=== PATIENT | male | born 1995 | race Caucasian/White ===

== ENCOUNTER 2019-11-10 17:02 | Emergency (ER) | payer OTHER ==
[2019-11-10 17:11] VITALS: BP 168/76
[2019-11-10 17:35] LABS: BASOPHILS % (AUTO) 0.3 %; EOSINOPHILS # (AUTO) 0.4 10^3/uL (0.0-0.7); EOSINOPHILS % (AUTO) 4.9 %; HGB - HEMOGLOBIN 14.5 g/dL (14.0-18.0); LYMPHOCYTES # (AUTO) 2.1 10^3/uL (1.5-3.5); LYMPHOCYTES % (AUTO) 24.7 %; MEAN CORPUSCULAR HEMOGLOBIN 30.4 pg (27.0-31.0); MEAN CORPUSCULAR HGB CONC 32.8 g/dL (32.0-36.0); MEAN CORPUSCULAR VOLUME 92.7 fL (80.0-94.0); MEAN PLATELET VOLUME 9.8 fL (7.4-11.4); MONOCYTES # (AUTO) 0.8 10^3/uL (0.0-1.0); MONOCYTES % (AUTO) 9.2 %; NEUTROPHILS # (AUTO) 5.2 10^3/uL (1.5-6.6); NEUTROPHILS % (AUTO) 60.6 %; PLT - PLATELET COUNT 215 10^3/uL (130-450); RED BLOOD COUNT 4.77 10^6/uL (4.70-6.10); RED CELL DISTRIBUTION WIDTH 12.9 % (12.0-15.0); WHITE BLOOD COUNT 8.6 x10^3/uL (4.8-10.8)
[2019-11-10 17:51] LABS: ALBUMIN 4.5 g/dL (3.2-5.5); ALBUMIN/GLOBULIN RATIO 1.5 (1.0-2.2); CALCIUM 9.5 mg/dL (8.5-10.3); TOTAL PROTEIN 7.5 g/dL (6.7-8.2)
[2019-11-10] MEDS ORDERED: MAG HYDROX/AL HYDROX/SIMETH 30 ML UDC PO STA (18:09)
[2019-11-10] MEDS ORDERED: LIDOCAINE VISCOUS 2% 15 ML UDC MM STA (18:09)
[2019-11-10] MEDS ORDERED: FAMOTIDINE 20 MG TABLET PO STA (18:09)
[2019-11-10] MEDS ORDERED: SUCRALFATE 1 GM/10 ML UDC PO STA (18:09)
--- NOTE | 2019-11-10 18:20 | ED Physician Documentation ---
PD HPI ABD PAIN - Stated complaint Stated Complaint: ABD BURNING/PX - Chief complaint Chief Complaint: Abd Pain - History obtained from History obtained from: Patient - History of Present Illness Timing - onset: How many days ago (2-3) Timing - duration: Days (2-3) Timing - details: Gradual onset Pain level max: 5 Pain level now: 4 Quality: Other (burning) Location: Epigastric Radiation: No: Chest, , Lower back, Left flank, Left shoulder, Right flank, Right shoulder, Upper back Improved by: Other (nothing) Worsened by: Eating Associated symptoms: Nausea. No: Fever, Vomiting, Hematemesis, Diarrhea, Constipation, Melena, Hematochezia, Dysuria, Hematuria Recently seen: Not recently seen Review of Systems Constitutional: denies: Fever, Chills Respiratory: denies: Cough Skin: denies: Rash Musculoskeletal: denies: Neck pain, Back pain Neurologic: denies: Headache PD PAST MEDICAL HISTORY - Past Medical History Past Medical History: No - Past Surgical History Past Surgical History: No - Present Medications Home Medications: Ambulatory Orders Medication Instructions Recorded Confirmed Famotidine [Pepcid] 20 mg PO BID #60 tablet 11/10/19 Sucralfate [Carafate] 1 gm PO ACHS #60 tablet 11/10/19 - Allergies Allergies/Adverse Reactions: Allergies Allergy/AdvReac Type Severity Reaction Status Date / Time No Known Drug Allergies Allergy Verified 11/10/19 17:08 - Living Situation Living Arrangement: reports: At home - Social History Does the pt smoke?: No Does the pt have substance abuse?: No PD ED PE NORMAL - Vitals Vital signs reviewed: Yes - General General: Alert and oriented X 3, No acute distress, Well developed/nourished - HEENT HEENT: Moist mucous membranes - Neck Neck: Supple, no meningeal sign - Cardiac Cardiac: RRR, Strong equal pulses - Respiratory Respiratory: No respiratory distress, Clear bilaterally - Abdomen Abdomen: Soft, Non tender, Non distended - Derm Derm: Warm and dry - Neuro Neuro: Alert and oriented X 3 - Psych Psych: Normal mood, Normal affect Results - Vitals Vitals: Vital Signs - 24 hr 11/10/19 17:08 Temperature 36.5 C Heart Rate 68 Respiratory 14 Rate Blood Pressure 168/76 H O2 Saturation 100 Oxygen O2 Source Room air - Labs Labs: Laboratory Tests 1211/10/19 11/10/19 17:30 17:30 18:05 WBC 8.6 RBC 4.77 Hgb 14.5 Hct 44.2 MCV 92.7 MCH 30.4 MCHC 32.8 RDW 12.9 Plt Count 215 MPV 9.8 Neut # (Auto) 5.2 Lymph # (Auto) 2.1 Screven # (Auto) 0.8 Eos # (Auto) 0.4 Baso # (Auto) 0.0 Absolute Nucleated RBC 0.00 Nucleated RBC % 0.0 Sodium 138 Potassium 4.0 Chloride 102 Carbon Dioxide 27 Anion Gap 9.0 BUN 14 Creatinine 1.0 Estimated GFR (MDRD) 92 Glucose 91 Calcium 9.5 Total Bilirubin 1.0 AST 39 ALT 25 Alkaline Phosphatase 46 Total Protein 7.5 Albumin 4.5 Globulin 3.0 Albumin/Globulin Ratio 1.5 Lipase 35 Urine Color YELLOW Urine Clarity CLEAR Urine pH 7.5 Ur Specific [place] 1.010 Urine Protein NEGATIVE Urine Glucose (UA) NEGATIVE Urine Ketones NEGATIVE Urine Occult Blood NEGATIVE Urine Nitrite NEGATIVE Urine Bilirubin NEGATIVE Urine Urobilinogen 0.2 (NORMAL) Ur Leukocyte Esterase NEGATIVE Ur Microscopic Review NOT INDICATED Urine Culture Comments NOT INDICATED PD MEDICAL DECISION MAKING - ED course Complexity details: reviewed results, re-evaluated patient, considered differential, d/w patient ED course: Patient with what appears to be gastritis versus GERD versus ulcer. No acute laboratory abnormalities. Symptoms resolved GI cocktail. Will place on medications for home and have him follow-up with his doctor. Patient counseled regarding signs and symptoms for which I believe and urgent re-evaluation would be necessary. Patient with good understanding of and agreement to plan and is comfortable going home at this time This document was made in part using voice recognition software. While efforts are made to proofread this document, sound alike and grammatical errors may occur. Departure - Departure Disposition: 01 Home, Self Care Clinical Impression: GERD (gastroesophageal reflux disease) Qualifiers: Esophagitis presence: esophagitis presence not specified Qualified Code(s): K21.9 - Gastro-esophageal reflux disease without esophagitis Condition: Good Instructions: ED GERD Follow-Up: your,doctor in 1 week [Other] Prescriptions: Famotidine [Pepcid] 20 mg PO BID #60 tablet Sucralfate [Carafate] 1 gm PO ACHS #60 tablet Comments: Return if you worsen. Follow up with your doctor for further care. Avoid fried foods, spicy foods, fatty foods. Avoid alcohol, caffeine. Discharge Date/Time: 11/10/19 18:55
[2019-11-10 18:23] LABS: BILIRUBIN,URINE NEGATIVE (NEGATIVE); GLUCOSE, URINE (UA) NEGATIVE (NEGATIVE); KETONES,URINE (UA) NEGATIVE (NEGATIVE); LEUKOCYTE ESTERASE, URINE NEGATIVE (NEGATIVE); NITRITE,URINE NEGATIVE (NEGATIVE); OCCULT BLOOD,URINE NEGATIVE (NEGATIVE); PH,URINE 7.5 PH (5.0-7.5); PROTEIN,URINE NEGATIVE (NEGATIVE); UROBILINOGEN,URINE 0.2 (NORMAL) E.U./dL (NORMAL)
[2019-11-10 18:40] LABS: CLARITY,URINE CLEAR (CLEAR)
== END 2019-11-10 18:55 | disposition home or self-care (01) ==
LOC: ED 17:02
DX: K21.9 Gastro-esophageal reflux disease without esophagitis (principal)
CPT/HCPCS: 36415; 80053; 81003; 83690; 85025; 99283; 99284; A9270; 81001; 87086

== ENCOUNTER 2023-02-07 13:07 | Outpatient (CLI) | payer OTHER ==
[2023-02-07 13:48] VITALS: BP 146/98
--- NOTE | 2023-02-07 13:48 | SLEEP CARE CONSULTATION ---
Information from patient questionnaire entered by Zeb Campo. I have reviewed and concur with the information entered by Zeb Campo. This document represents the service I personally performed and the decisions made by me, Geovanna De Guzman ARNP. History of Present Illness Service Date and Time: 02/07/2023 1307 Reason for Visit: New patient Chief Complaint: reports: Insomnia, Unrefreshed sleep, Snoring, Observed pauses in breathing, Frequent awakenings at night Date of Onset: A COUPLE YRS Usual bedtime: 10 Time it takes to fall asleep: 4-5 HRS with meds Snores at night: Yes Observed to quit breathing while asleep: Yes Sleeps alone due to snoring: No Number of times waking at night: 2-3 Reasons for waking at night: reports: Snoring, Gasping for air. denies: Choking Toss, Turn, or Twitch while sleeping: No Recalls having dreams: Yes (has vivid dreams/nightmares mostly) Usually gets out of bed at: 7AM Feels refreshed in the morning: No Morning headache: Yes (couple times a week; RESOLVES COUPLE HRS AFTER WAKING) Sleepy or fatigued during the day: Yes Ever fallen asleep while driving: No Takes day naps: Yes (whenever he watches TV, will fall asleep; sleeps 4-5 hours) Dreams during day naps: Yes Prior sleep studies: No Additional HPI information: I had the pleasure of seeing RYAN KILLIAN today regarding the possibility of him having a sleep disorder. His current complaints are frequent night awakenings, observed pauses in breathing, snoring and unrefreshed sleep. He states about 2 years ago he stopped being able to sleep well. He can now take 4- 5 hours to fall asleep, even when he has had medication to help him fall asleep. He states he stops breathing when he is sleeping and it will wake him up gasping. He snores very loud and his girlfriend will wake him up to roll over. He states he does not get much sleep because his PTSD keeps him up late. He does not usually wake up feeling rested. - Parasomnia Symptoms Ever been unable to move upon waking from sleep: No Walks in sleep: No Talks in sleep: Yes Ever acted out dreams in sleep: No Ever felt weak in the knees when startled or emotional: Yes (has not fallen to ground) Bothered by creepy, crawly, restless sensations in legs: No Problems with memory or concentration: No Subjective Initial [place] Sleepiness Scale score: 13 (02/07/23) Past Medical History Past Medical History: reports: Anxiety, Depression, Mood disorder (Major Deprssion Disorder), GERD, Other (PTSD) Social History The patient's occupation is a AM. Patient is Single and lives in . Have you smoked in the past 12 months: No Alcohol use: Yes Alcohol amount and frequency: COUPLE BEERS ON THE WEEKENDS Caffeine use: Yes Caffeine amount and frequency: 2 EVERY WEEKDAY MORNING Family History Family history of sleep disordered breathing: No Allergies and Home Medications Known drug allergies: No Drug allergies reviewed: Yes Home medication list reviewed: Yes Allergy and home medication list: Allergies No Known Drug Allergies Allergy (Verified 02/06/23 14:03) Medications: Wellbutrin Zolpidem Venlafaxine Review of Systems Weight gain over past 5 years: 50 Weight loss over past 5 years: 20 - currently losing weight Cardiovascular: denies: high blood pressure Gastrointestinal: reports: heartburn, vomitting Neurological: reports: headaches (migraines 2 times a month). denies: head trauma Psychiatric: reports: anxiety, depression, mood disorder Ear/Nose/Throat: reports: wisdom teeth removed. denies: injury to nose, tonsillectomy Endocrine: reports: sluggishness. denies: thyroid disease Musculoskeletal: reports: joint pain, neck pain, back pain Immunologic: reports: allergies to food or environment (seasonal, mosquitoes) Physical Exam Vital signs obtained and entered by: ZEB Beyer MA Blood Pressure: 146/98 (LEFT ARM) Cuff size: regular (LEFT ARM) Heart Rate: 93 O2 Saturation: 96 Height: 5 ft 8 in Weight: 273 lb 9.6 oz Body Mass Index: 41.5 BMI Classification: Morbidly Obese Neck circumference: 17 Mouth and throat: narrow oropharynx Soft palate: normal Hard palate: normal Uvula: normal Uvula visualization: 50% Mallampati Class II Tongue: enlarged in size with teeth leija on lateral edges Tonsils: 2+ Neck: normal w/o lymphadenopathy or thyromegaly Heart: regular rate and rhythm Lungs: clear bilaterally Impression and Plan 1. Suspected Obstructive Sleep Apnea-Hypopnea Syndrome, as suggested by a history of loud and irregular snoring, observed cessation of breath while asleep, gasping or choking in sleep, morning headache, frequent awakening during the night, unrefreshed sleep, and excessive daytime sleepiness. Narrow oropharynx and obesity are common predisposing factors for obstructive sleep apnea-hypopnea syndrome. I recommend proceeding to polysomnography to confirm the diagnosis and to assess severity. If the patient has significant sleep disordered breathing, a manual CPAP titration study will also be performed to find the optimal treatment pressure. I informed the patient of what the sleep studies involve and after some discussion, obtained agreement to proceed. The pathophysiology of obstructive sleep apnea-hypopnea syndrome was discussed with the patient and health risks of cardiovascular and cerebrovascular disease if not treated. Risks of drowsy driving discussed in detail and patient advised to avoid long distance driving and to jawbone puller at the first sign of drowsiness. Patient agreed to plan. * Schedule polysomnography * Avoid long distance driving or driving when feeling sleepy. * Avoid alcohol, sedative and muscle relaxant around bedtime. * Attempt to lose weight. * Review instructions provided by trained office staff on how to prepare for the sleep study. * Return for follow-up after sleep study completed. Counseling Topics: Weight loss health impact Visit Type: In Office Time Spent with Patient (minutes): 30 Provider Statement: I spent 100% of the Face to Face Visit with the patient with greater than 50% spent counseling the patient and coordination of care.
== END 2023-02-07 13:08 | disposition home or self-care (01) ==
LOC: SC 13:07
PROVIDERS: ATTEND Nurse Practitioner Family
DX: G47.8 Other sleep disorders (principal); R51.9 Headache, unspecified; E66.01 Morbid (severe) obesity due to excess calories; F32.A Depression, unspecified; Z68.41 Body mass index [BMI] 40.0-44.9, adult
CPT/HCPCS: 99203; 99212

== ENCOUNTER 2023-03-07 19:40 | Outpatient (CLI) | payer OTHER | END 2023-03-07 19:41 | disposition home or self-care (01) | LOC: SC 19:40 | PROVIDERS: ATTEND Nurse Practitioner Family | DX: G47.33 Obstructive sleep apnea (adult) (pediatric) (principal); E66.01 Morbid (severe) obesity due to excess calories; Z68.41 Body mass index [BMI] 40.0-44.9, adult | CPT/HCPCS: 95810 ==

== ENCOUNTER 2023-03-14 15:56 | Emergency (ER) | payer OTHER ==
--- NOTE | 2023-03-14 16:46 | ED Physician Documentation ---
PD HPI LOWER EXT INJURY - Stated complaint Stated Complaint: RT KNEE PX - Chief complaint Chief Complaint: Ext Problem - History obtained from History obtained from: Patient - History of Present Illness PD HPI LOW EXT INJURY LOCATION: Right, Knee Pain level max: 6 Pain level now: 4 Improved by: Rest, Ice, Immobilization Worsened by: Moving, Palpating Associated symptoms: Swelling. No: Weakness, Numbness, Tingling, Discolored - Additional information Additional information: Patient is a 27-year-old male who presents to the emergency department complaint of right knee pain. He states been ongoing for about a month. He states he was seen at the [facility] but just given motrin. He states the knee has continued to worsen since that time. He states he was doing squats a few days ago and the knee began to hurt worse. Worse with walking, better with rest. Noted swelling to the right knee. Review of Systems Neurologic: denies: Headache PD PAST MEDICAL HISTORY - Past Medical History Past Medical History: Yes - Past Surgical History Past Surgical History: No - Present Medications Home Medications: Ambulatory Orders Medication Instructions Recorded Confirmed Venlafaxine ER [Effexor ER] See Rx Instructions .ROUTE .COMPLEX 02/07/23 02/07/23 Zolpidem [Ambien] See Rx Instructions .ROUTE .COMPLEX 02/07/23 02/07/23 buPROPion [Wellbutrin Sr] See Rx Instructions .ROUTE .COMPLEX 02/07/23 02/07/23 Meloxicam [Mobic] 7.5 mg PO BID PRN #30 tablet 03/14/23 - Allergies Allergies/Adverse Reactions: Allergies Allergy/AdvReac Type Severity Reaction Status Date / Time No Known Drug Allergies Allergy Verified 03/14/23 16:06 - Living Situation Living Situation: reports: With family Living Arrangement: reports: At home - Social History Does the pt smoke?: No Does the pt have substance abuse?: No PD ED PE NORMAL - Vitals Vital signs reviewed: Yes - General General: Alert and oriented X 3, No acute distress - HEENT HEENT: Moist mucous membranes - Neck Neck: Supple, no meningeal sign - Derm Derm: Warm and dry - Extremities Extremities: Other (Left knee is normal. Right knee has a small joint effusion. Mild tenderness along the lateral joint line. ACL and PCL are intact. There is mild laxity of the LCL and MCL. NVI) - Neuro Neuro: Alert and oriented X 3 Results - Vitals Vitals: Vital Signs - 24 hr 03/14/23 16:03 Temperature 36.6 C Heart Rate 101 H Respiratory 18 Rate Blood Pressure 191/89 H O2 Saturation 99 Oxygen O2 Source Room air - Rads (name of study) Right knee x-ray Relevant Findings:: Final report received, See rad report PD Medical Decision Making - ED course Complexity details: reviewed results, re-evaluated patient, considered differential, d/w patient ED course: 27-year-old male with ongoing right knee pain, does have a small joint effusion on clinical exam and x-ray. Also has mild ligamentous laxity of the LCL and MCL. Neurovascularly intact. Placed an articulating knee brace. Declines crutches. Will place on anti-inflammatory medications as well. Recommend that he follow-up with his doctor and or orthopedics for further care. May benefit from an MRI as an outpatient. Patient counseled regarding signs and symptoms for which I believe and urgent re-evaluation would be necessary. Patient with good understanding of and agreement to plan and is comfortable going home at this time This document was made in part using voice recognition software. While efforts are made to proofread this document, sound alike and grammatical errors may occur. Departure - Departure Disposition: 01 Home, Self Care Clinical Impression: Knee effusion, right Condition: Good Instructions: ED Meniscal Injury Knee Poss, ED Effusion Knee Follow-Up: [facility] [Provider Group] [facility] [Provider Group] Prescriptions: Meloxicam [Mobic] 7.5 mg PO BID PRN #30 tablet PRN Reason: Pain Comments: Please follow-up with your doctor for further care. You do have mild laxity to your MCL and LCL. You also have a small joint effusion on x-ray. Please use the brace to help take the pressure off of your joints. Please follow-up with your doctor for further care. They may want to consider an MRI. You may have a meniscus injury in your knee. Your prescription was sent to [facility] in [place]. IMPRESSION: Small knee joint effusion. No acute bony abnormality. If this patient cannot bear weight, consider MRI.
--- NOTE | 2023-03-14 16:51 | XRAY Report ---
PROCEDURE: Knee 4 View RT INDICATIONS: R knee pain TECHNIQUE: 4 views of the right knee(s) were acquired. COMPARISON: None. FINDINGS: Bones: No fractures or dislocations. No suspicious bony lesions. Soft tissues: Small knee joint effusion. No suspicious soft tissue calcifications or masses. IMPRESSION: Small knee joint effusion. No acute bony abnormality. If this patient cannot bear weight, consider MR I. Reviewed by: Forest Garcia on 03/14/2023 4:49 PM PDT Approved by: Forest Garcia on 03/14/2023 4:49 PM PDT Station ID: [id number]
[2023-03-14 17:34] VITALS: BP 169/80
== END 2023-03-14 17:34 | disposition home or self-care (01) ==
LOC: ED 15:56
DX: M25.461 Effusion, right knee (principal); Z79.899 Other long term (current) drug therapy
CPT/HCPCS: 99283

== ENCOUNTER 2023-03-27 09:28 | Outpatient (CLI) | payer OTHER ==
--- NOTE | 2023-03-27 09:46 | Sleep Patient Instructions ---
Sleep Center Visit Summary - Patient Visit Information Reason for Visit: Sleep study follow up - Patient Instructions Instructions Attached: CPAP Dc, CPAP Additional Instructions: You will be started on CPAP therapy with pressure setting at 4-15 cmH2O. Please call the office to set up your next follow up once you obtain your new APAP machine and we will check compliance and response to therapy at that time. You may call the office with any concerns about pressure feeling too low or too much for adjustment if needed. You should contact DME for any questions or concerns about mask or equipment. - Clinic Information Contact: [facility] [address] [place] [address] [email or web address] T: [phone]
[2023-03-27 09:50] VITALS: BP 112/78
--- NOTE | 2023-03-27 09:50 | SLEEP CARE CONSULTATION ---
Information from patient questionnaire entered by Lisa Campo. I have reviewed and concur with the information entered by Lisa Campo. This document represents the service I personally performed and the decisions made by , Geovanna De Guzman ARNP. History of Present Illness Service Date and Time: 03/27/2023927 Initial [place] Sleepiness Scale score: 13 (02/07/23) Current [place] Sleepiness Scale score: 14 (03/27/23) Additional HPI information: RYAN KILLIAN returns for follow up and results of the recently performed polysomnography. I explained the pathophysiology behind obstructive sleep apnea. We then spent quite a bit of time discussing different treatment options. For mild obstructive sleep apnea, surgery and oral appliance are alternatives to nasal CPAP therapy but in moderate or severe cases, nasal CPAP is the most effective and reliable treatment. Because apnea is primarily in supine position, then positional management therapy could be effective. Methods discussed such as positioning with pillows, using a T-shirt with tennis balls in the back,or commercial products that have a pillow format on back to prevent supine sleep. I reviewed the impact of weight changes on sleep apnea and strongly recommended losing weight. After some discussion, the patient opted to go with the nasal CPAP therapy. Nasal autoCPAP set at 4-15 cmH20 will be ordered with rationale explained. A manual titration study will be ordered if unable to find optimal pressure with office adjustments. I explained how CPAP machine works and what to expect when using the machine. Using CPAP every night in order to get used to it was emphasized. Patient advised to put CPAP mask on before getting into bed so as not to fall asleep without CPAP. To assist acclimation to CPAP use, it could also be used for a short time during day while reading or watching TV. The patient was instructed to call the CPAP supplier to discuss any mechanical problem that may occur. If the mask given is uncomfortable or is difficult to keep on through the night even with adjustment, contact the CPAP supplier as many will replace with another mask style if notified before 30 days. If snoring or perceives is not getting enough air or too much air from the machine, notify this office. Patient does not drink alcohol. Patient was cautioned about risks of drowsy driving until sleepiness symptoms resolve. Patient denies drowsy driving. Sleep Study - Results Type of Sleep Study: Polysomnography (COMPLETED 03/07/23) Prior sleep studies: No Polysomnography/Home Sleep Study results: IMPRESSION: The quality of the study is good. 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 The sleep architecture was normal. Respiratory monitoring showed mild obstructive sleep apneahypopnea (AHI = 10.6) associated with oxyhemoglobin desaturation and mild hypoxia (cheng oxygen saturation of 84%) but not sleep fragmentation. The respiratory events occurred more frequently during supine sleep (supine AHI = 13.0; non-supine = 7.27). Snore was loud in intensity. There was no significant periodic leg movement of sleep. Cardiac rhythm was normal sinus rhythm without significant arrhythmia. No abnormal behavior (parasomnia) observed during the night. Allergies and Home Medications Known drug allergies: No Drug allergies reviewed: Yes Home medication list reviewed: Yes (tizanadine, mirtazapine) Allergy and home medication list: Allergies No Known Drug Allergies Allergy (Verified 03/26/23 13:23) Review of Systems Review of systems same as previous: Yes (no changes) Physical Exam Vital signs obtained and entered by: LISA Beyer MA Blood Pressure: 112/78 (LEFT ARM) Cuff size: regular Heart Rate: 68 O2 Saturation: 99 Height: 5 ft 8 in Weight: 275 lb 6.4 oz Body Mass Index: 41.8 BMI Classification: Morbidly Obese Impression and Plan 1. Obstructive Sleep Apnea-Hypopnea Syndrome, mild, with lowest oxygen saturation of 84%. Obviously this is the cause of the patients symptoms of unrefreshed sleep, and excessive daytime sleepiness. Positive pressure therapy could benefit anxiety, depression, mood disorders and gastric reflux. As mentioned above, the patient will be started on nasal autoCPAP therapy with pressure set at 4-15 cmH2O. A manual titration study will be completed if unable to find optimal treatment pressure with office adjustments. Compliance guidelines also reviewed. A copy of compliance guidelines will be given for reference at check out. Because the apnea is more severe supine, I instructed to avoid sleeping supine using pillow positioning until able to start CPAP use. 2. Hypoxemia, mild, with a cheng oxygen saturation of 84% and 0.4 minutes spent under 90%. His baseline oxygen saturation was normal with an average oxygen s aturation of 95%. * Nasal auto CPAP therapy, pressure at 4-15 cm H2O. * Attempt to lose weight. * Avoid alcohol consumption near bedtime. * Avoid supine sleep until using CPAP. * The patient is again cautioned about driving until sleepiness completely resolves. * Return one month after CPAP obtained. I will assess response to therapy and compliance at that time. Counseling Topics: Weight loss health impact Visit Type: In Office Time Spent with Patient (minutes): 20 Provider Statement: I spent 100% of the Face to Face Visit with the patient with greater than 50% spent counseling the patient and coordination of care.
== END 2023-03-27 09:29 | disposition home or self-care (01) ==
LOC: SC 09:28
PROVIDERS: ATTEND Nurse Practitioner Family
DX: G47.33 Obstructive sleep apnea (adult) (pediatric) (principal); R09.02 Hypoxemia; E66.01 Morbid (severe) obesity due to excess calories; Z68.41 Body mass index [BMI] 40.0-44.9, adult
CPT/HCPCS: 99212; 99213

== ENCOUNTER 2023-09-08 19:00 | Emergency (ER) | payer OTHER ==
[2023-09-08 19:16] VITALS: BP 147/83; O2SAT 98
[2023-09-08] MEDS ORDERED: KETOROLAC 30 MG/ML VIAL IM STA (20:10)
[2023-09-08] MEDS ORDERED: DEXAMETHASONE 10 MG/ML VIAL PO STA (20:11)
[2023-09-08] MEDS ORDERED: CHERRY SYRUP 10 ML UDC PO ONE (20:11)
--- NOTE | 2023-09-08 20:32 | ED Physician Documentation ---
History of Present Illness - Stated complaint Stated Complaint: BACK PX - Chief complaint Chief Complaint: Back Pain - Additonal information Additional information: 28-year-old male who began working out about 3 weeks ago presents to the [facility] department for evaluation of acute low back pain he reports that he was doing a lift with 245 pounds. He did have some pain when doing the lifts but finish the set and completed his upper back workout. Since going home he has had difficulty sitting or standing and has some pain radiating down both his legs most predominant though on the left. No saddle anesthesia. No bowel or bladder incontinence. He did take some THC orally but no other meds prior to arrival. Denies any previous history of back pain or back injury. Review of Systems Respiratory: reports: Reviewed and negative GI: reports: Reviewed and negative : reports: Reviewed and negative Musculoskeletal: reports: Back pain PD PAST MEDICAL HISTORY - Past Surgical History Past Surgical History: No - Present Medications Home Medications: Ambulatory Orders Medication Instructions Recorded Confirmed Venlafaxine ER [Effexor ER] See Rx Instructions .ROUTE .COMPLEX 02/07/23 03/27/23 Zolpidem [Ambien] See Rx Instructions .ROUTE .COMPLEX 02/07/23 03/27/23 buPROPion [Wellbutrin Sr] See Rx Instructions .ROUTE .COMPLEX 02/07/23 03/27/23 Meloxicam [Mobic] 7.5 mg PO BID PRN #30 tablet 03/14/23 03/27/23 Mirtazapine See Rx Instructions .ROUTE .COMPLEX 03/27/23 03/27/23 tiZANidine [Zanaflex] See Rx Instructions .ROUTE .COMPLEX 03/27/23 03/27/23 Cyclobenzaprine [Flexeril] 10 mg PO TID PRN #20 tablet 09/08/23 Oxycodone HCl/Acetaminophen 1 - 2 each PO Q6H PRN #14 tablet 09/08/23 [Percocet 5-325 mg Tablet] - Allergies Allergies/Adverse Reactions: Allergies Allergy/AdvReac Type Severity Reaction Status Date / Time No Known Drug Allergies Allergy Verified 03/27/23 09:34 - Social History Does the pt smoke?: No Smoking Status: Never smoker Does the pt have substance abuse?: No PD ED PE NORMAL - General General: Alert and oriented X 3. No: No acute distress (appears ) - HEENT HEENT: Atraumatic - Cardiac Cardiac: RRR, No murmur - Respiratory Respiratory: No respiratory distress, Clear bilaterally - Abdomen Abdomen: Normal bowel sounds, Soft - Back Back: No spinal TTP (no midline lumbar spinous tenderness. pain with forward flexion and palpation left paraspinous region. motro strength 5/5 BLE. Reports bilateral parathesias. ambulatory withotu assistance) - Derm Derm: Normal color, Warm and dry, No rash - Extremities Extremities: No deformity - Neuro Neuro: Alert and oriented X 3 Eye Opening: Spontaneous Motor: Obeys Commands Verbal: Oriented GCS Score: 15 Results - Vitals Vitals: Vital Signs - 24 hr 09/08/23 19:06 Temperature 36.4 C L Heart Rate 102 H Respiratory 20 Rate Blood Pressure 147/83 H O2 Saturation 98 Oxygen O2 Source Room air PD Medical Decision Making - ED course Complexity details: d/w patient ED course: 28-year-old male here for acute mostly left-sided low back pain sustained when he was lifting 425 pounds. He did have pain during the lift but continued to work out afterwards since then significant pain in the low back with reported tingling to both extremities. He has no loss of motor strength. No saddle anesthesia, loss of bowel or bladder function. Here in the emergency department he was administered 30 mg of Toradol IM as well as given 10 mg of Decadron orally. On reevaluation he felt little relief of the pain. As such I administered him a 1 mg dose of Dilaudid IM. Clinically the history is most suggestive of a disc herniation with some likely nerve impingement. There are no red flags to suggest cauda equina or spinal epidural abscess. I discussed with patient the routine care measures for what appears to be a mechanical back pain. He is recommended Tylenol 500 mg 4 times a day or alter nating with ibuprofen 600 mg 3 times a day. A prescription for Flexeril is being sent to the pharmacy as well. For more severe pain a limited amount of oxycodone is being sent to the pharmacy. Her I recommend patient follow closely with PCP. I believe he would benefit from early intervention with physical therapy. We discussed the usual time course for low back pain which includes a recovery period typically of several weeks. The emergent return precautions were discussed for concerns of saddle anesthesia or bowel and bladder incontinence. I am prescribing a short course of short-acting opioid pain medication for this patient. I have reviewed the patients [employer] and no concerning findings were noted. I have discussed that the opioids are for short term therapy only, and will not be refilled from the ED. Departure - Departure Disposition: 01 Home, Self Care Clinical Impression: Low back pain Qualifiers: Chronicity: acute Back pain laterality: left Sciatica presence: without sciatica Qualified Code(s): M54.50 - Low back pain, unspecified Condition: Stable Record reviewed to determine appropriate education?: Yes Instructions: ED Sprain Strain Lumbar, Flexeril Prescriptions: Cyclobenzaprine [Flexeril] 10 mg PO TID PRN #20 tablet PRN Reason: Spasms Oxycodone HCl/Acetaminophen [Percocet 5-325 mg Tablet] 1 - 2 each PO Q6H PRN #14 tablet PRN Reason: pain Comments: You were lifting today and felt pain in your low back. You did continue your work out now you have significant pain in the low back. As discussed at the bedside I suspect that you have sprained the muscles of the low back but it is also likely that you have herniated one of your discs. Here in the ER we did give you a dose of Toradol as well as a single dose of Decadron which should help with pain and inflammation over the next several days. In general with back pain I want encourage you to walk frequently. Walking will help reduce spasm and tightening. Please take Tylenol 500 mg 3-4 times a day and alternate with ibuprofen taken with food 600 mg also 3 times a day. I have written a prescription for Flexeril a muscle relaxer which some people find useful in the management of back pain. For more severe symptoms a limited amount of Percocet has also been sent to the pharmacy. Do not use the Percocet or Flexeril together. They can cause excessive sedation. The oxycodone in particular makes it unsafe for you to drive so do not drive if taking it within the last 24 hours. Please follow closely with your primary doctor. Most low back pain such as yours would benefit from early physical therapy evaluation. Most episodes of back pain begin to resolve after 2 to 3 weeks. If at any point you develop numbness in your genital region, lose control of your bowel or bladder function then you will need to return immediately to the ER for repeat evaluation. I am prescribing a short course of narcotic pain medication for you. These are potentially dangerous and addictive medications that should be used carefully. These medications may constipate you. Take an vtys-ohd-tnijpvi stool softener (docusate) twice daily with plenty of water while taking these medications. If you go 24 hours without a bowel movement, take dlgj-waf-ekbwohm miralax, per package instructions. Do not drink or drive while taking these medications. If you received narcotic or sedating medications while in the emergency department, do not drive for 24 hours. Store this medication in a safe, secure place and out of reach of children. It is a violation of federal law to give or sell this medication to another person or to use in a manner other than prescribed. The ED will not refill narcotic prescriptions, including prescriptions lost or stolen. To dispose of unwanted medications: 1. [facility] [address] in [place] has a medication drop box. They accept prescription medications (in pill form) Friday through Friday 9:00 a.m. to 5:00 p.m. 2. [facility] [employer] accepts prescription medications (in pill form only) for disposal year round. Call for more information. 3. Contact the [facility] for the next [facility] sponsored prescription drug collection event. , [phone], or [phone]; Note that many narcotic pain relievers also contain Tylenol/acetaminophen. Please ensure that your total dose of acetaminophen from all sources does not exceed 3 g (3000 mg) per day.
[2023-09-08] MEDS ORDERED: HYDROmorphone 1 MG/ML CARPUJECT IM STA (21:02)
== END 2023-09-08 21:21 | disposition home or self-care (01) ==
LOC: ED 19:00
DX: M54.50 Low back pain, unspecified (principal)
CPT/HCPCS: 96372; 99283; A9270; J1170

== ENCOUNTER 2024-02-02 12:52 | Outpatient (CLI) | payer OTHER ==
--- NOTE | 2024-02-02 15:50 | Ultrasound Report ---
PROCEDURE: Abdomen Limited INDICATIONS: VOMITING TECHNIQUE: Real-time focused scanning was performed of the abdomen, with image documentation. COMPARISONS: None. FINDINGS: Liver: Liver demonstrates heterogeneous echogenicity without focal intrahepatic lesions. No hepatome michael. Main portal vein is normal in size and demonstrates hepatopedal flow. Gallbladder: Unremarkable. Biliary ducts: Intrahepatic bile ducts are non-dilated. Extrahepatic bile duct caliber measures 4 m m. Normal is 6-7 mm or less in diameter, or 10 mm or less post-cholecystectomy. Pancreas: Visualized portions of the pancreas are sonographically normal. Right kidney: Normal in size and echotexture. Right kidney measures cm long. No hydronephrosis or ne phrolithiasis. No solid masses. No complex renal cystic lesions which require follow-up. IVC: Intrahepatic inferior vena cava is patent. Miscellaneous: No free abdominal fluid. IMPRESSION: Heterogeneous hepatic echotexture without focal intrahepatic lesions. Findings may represent hepatic steatosis or sequela other chronic hepatocellular disease. Otherwise, unremarkable sonographic evalua tion of the abdomen. Reviewed by: Aurelio Morgan MD on 02/02/2024 2:49 PM HUNTER Approved by: Aurelio Morgan MD on 02/02/2024 2:49 PM AKTERESA Station ID: [id number]
== END 2024-02-02 12:53 | disposition home or self-care (01) ==
LOC: DI 12:52
PROVIDERS: ATTEND Student in an Organized Health Care Education/Training Program
DX: R11.10 Vomiting, unspecified (principal)

== ENCOUNTER 2024-02-18 11:50 | Outpatient (CLI) | payer OTHER ==
[2024-02-18 12:06] LABS: BASOPHILS % (AUTO) 0.4 %; EOSINOPHILS # (AUTO) 0.1 10^3/uL (0.0-0.7); EOSINOPHILS % (AUTO) 1.6 %; HCT - HEMATOCRIT 44.9 % (42.0-52.0); HGB - HEMOGLOBIN 14.6 g/dL (14.0-18.0); LYMPHOCYTES # (AUTO) 2.8 10^3/uL (1.5-3.5); LYMPHOCYTES % (AUTO) 51.4 %; MEAN CORPUSCULAR HEMOGLOBIN 28.9 pg (27.0-31.0); MEAN CORPUSCULAR HGB CONC 32.5 g/dL (32.0-36.0); MEAN CORPUSCULAR VOLUME 88.9 fL (80.0-94.0); MEAN PLATELET VOLUME 9.7 fL (7.4-11.4); MONOCYTES # (AUTO) 0.5 10^3/uL (0.0-1.0); MONOCYTES % (AUTO) 8.5 %; NEUTROPHILS # (AUTO) 2.1 10^3/uL (1.5-6.6); NEUTROPHILS % (AUTO) 37.9 %; PLT - PLATELET COUNT 212 10^3/uL (130-450); RED BLOOD COUNT 5.05 10^6/uL (4.70-6.10); RED CELL DISTRIBUTION WIDTH 12.5 % (12.0-15.0); WHITE BLOOD COUNT 5.5 x10^3/uL (4.8-10.8)
[2024-02-18 12:20] LABS: ALBUMIN 4.3 g/dL (3.2-5.5); ALBUMIN/GLOBULIN RATIO 1.5 (1.0-2.2); BILIRUBIN,TOTAL 0.5 mg/dL (0.2-1.0); POTASSIUM 4.3 mmol/L (3.5-4.5); TOTAL PROTEIN 7.1 g/dL (6.4-8.9)
== END 2024-02-18 11:51 | disposition home or self-care (01) ==
LOC: LAB 11:50
PROVIDERS: ATTEND Surgery
DX: K21.9 Gastro-esophageal reflux disease without esophagitis (principal)
CPT/HCPCS: 36415; 80053; 85025

== ENCOUNTER 2024-03-11 13:32 | Emergency (ER) | payer OTHER ==
[2024-03-11 14:04] VITALS: O2SAT 100
--- NOTE | 2024-03-11 15:16 | ED Physician Documentation ---
History of Present Illness - Stated complaint Stated Complaint: BACK PX,N/V - Chief complaint Chief Complaint: Back Pain - History obtained from History obtained from: Patient - Additonal information Additional information: The patient comes to the emergency department chief complaint of back pain that is central and left, around his mid to lower back. He states it came on suddenly 3 days ago when he was just sitting in a chair. He states he had not even moved any particular way when it started. The patient denies doing any heavy lifting, working out, or other Physically strenuous activity in the days or hours preceding onset of pain. He states that he does have a history of injuring his back some months ago while doing lifts but he has not had any other injuries and does not have any diagnosed underlying back issues. He denies any loss of bowel or bladder control and no numbness or tingling in his lower extremities. No particular movements make the back pain worse. No urinary symptoms. No other complaints at this time. PD PAST MEDICAL HISTORY - Past Medical History Cardiovascular: Hypertension GI: GERD Psych: Depression, Anxiety - Past Surgical History Past Surgical History: No - Present Medications Home Medications: Ambulatory Orders Medication Instructions Recorded Confirmed Venlafaxine ER [Effexor ER] See Rx Instructions .ROUTE .COMPLEX 02/07/23 03/27/23 Zolpidem [Ambien] See Rx Instructions .ROUTE .COMPLEX 02/07/23 03/27/23 buPROPion [Wellbutrin Sr] See Rx Instructions .ROUTE .COMPLEX 02/07/23 03/27/23 Meloxicam [Mobic] 7.5 mg PO BID PRN #30 tablet 03/14/23 03/27/23 Mirtazapine See Rx Instructions .ROUTE .COMPLEX 03/27/23 03/27/23 tiZANidine [Zanaflex] See Rx Instructions .ROUTE .COMPLEX 03/27/23 03/27/23 Cyclobenzaprine [Flexeril] 10 mg PO TID PRN #20 tablet 09/08/23 Oxycodone HCl/Acetaminophen 1 - 2 each PO Q6H PRN #14 tablet 09/08/23 [Percocet 5-325 mg Tablet] predniSONE [Deltasone] 10 mg PO [id number] #42 tab 03/11/24 - Allergies Allergies/Adverse Reactions: Allergies Allergy/AdvReac Type Severity Reaction Status Date / Time No Known Drug Allergies Allergy Verified 03/11/24 14:02 - Social History Does the pt smoke?: No Smoking Status: Never smoker Does the pt drink ETOH?: No Does the pt have substance abuse?: No - Immunizations Immunizations are current?: Yes - POLST Patient has POLST: No PD ED PE NORMAL - Vitals Vital signs reviewed: Yes - General General: Alert and oriented X 3, No acute distress, Well developed/nourished - HEENT HEENT: Atraumatic, PERRL, EOMI, Moist mucous membranes - Neck Neck: Supple, no meningeal sign - Cardiac Cardiac: RRR, No murmur - Respiratory Respiratory: No respiratory distress, Clear bilaterally - Abdomen Abdomen: Soft, Non tender, Non distended - Back Back: No CVA TTP (The patient points to about the 11-12 thoracic level and first lumbar level as area of pain. No muscular tenderness to palpation. No mass or palpable muscle spasm.), No spinal TTP, Other (Full range of motion of back without difficulty with twisting [id number], flexing, and stretching [id number].) - Derm Derm: Normal color, Warm and dry, No rash - Extremities Extremities: No deformity, No tenderness to palpate, Other - Neuro Neuro: Alert and oriented X 3 - Psych Psych: Normal mood, Normal affect Results - Vitals Vitals: Vital Signs - 24 hr 03/11/24 13:55 Temperature 36.6 C Heart Rate 86 Respiratory 20 Rate Blood Pressure 150/100 H O2 Saturation 100 Oxygen O2 Source Room air - Rads (name of study) CT abdomen and pelvis Relevant Findings:: Final report received, See rad report (Negative for acute findings) PD Medical Decision Making - ED course Complexity details: reviewed results, re-evaluated patient, considered differential, d/w patient ED course: The patient's presentation was a bit atypical for either musculoskeletal or kidney stone source of pain, and that the onset of pain was spontaneous but was very close to the midline. He had very good range of motion and had not had any urinary symptoms. I decided to get a CT of the abdomen and pelvis without contrast to evaluate for the possibility of kidney stone since there really did not seem to be any trigger whatsoever for musculoskeletal pain. CT scan was negative. I discussed with the patient symptomatic management at home, including steroid taper. He has declined narcotic pain medication. We have discussed the need for follow-up if the pain does not blow over on its own within the next few weeks. We have also discussed the usual indications for return. Departure - Departure Disposition: 01 Home, Self Care Clinical Impression: Back pain Qualifiers: Back pain location: back pain in unspecified location Chronicity: acute Back pain laterality: midline Qualified Code(s): M54.9 - Dorsalgia, unspecified Condition: Stable Instructions: ED Neck Back Pain General Prescriptions: predniSONE [Deltasone] 10 mg PO [id number] #42 tab Comments: It is not clear what caused your spontaneous back pain that started a few days ago. You have not had any recent or remote trauma that would be likely to have caused this pain with you just sitting in the chair, and your CT scan is negative for any concerning findings, including kidney stone. At this point, it is most likely that you have some sort of inflammatory condition going on from an old or small injury that has been aggravated by some unknown stressor, and usually, these things will pass on their own. However, if you do not notice any relief at all of the pain in the next few weeks, you can call your primary doctor's office to get an appointment to talk about getting a follow-up MRI. In the meantime, you may take ibuprofen and the steroid taper that has been prescribed for you. The prescription for this has been electronically transmitted to the [facility] pharmacy in [place].
--- NOTE | 2024-03-11 16:22 | CT Report ---
PROCEDURE: Abdomen/Pelvis WO INDICATIONS: L back pain, sudden onset TECHNIQUE: A CT scan of the abdomen and pelvis was performed without the use of intravenous contrast. Images we re recorded and evaluated at appropriate window settings. Reformats: coronal and sagittal. For radiat ion dose reduction, the following was used: automated exposure control, adjustment of mA and/or kV ac cording to patient size. COMPARISON: Ultrasound abdomen 02/01/2023 FINDINGS: Image quality: Diagnostic. Lower chest: Unremarkable. Liver: No contour-deforming mass. Gallbladder and biliary tree: Spleen: No splenomegaly. Pancreas: No pancreatic ductal dilation. Adrenals: No adrenal nodule. Kidneys and ureters: No hydronephrosis. No renal cystic lesion which requires follow up. No solid mas s. Stomach, bowel and peritoneum: No bowel distension. No pathologic free fluid. Mild hiatal hernia. Col onic diverticular present without inflammatory change. Lymph nodes: No central or retroperitoneal adenopathy. Vessels: No infrarenal aortic aneurysm. PELVIS Reproductive organs: Unremarkable. Bladder: No wall thickness, accounting for underdistention. Pelvic lymph nodes: No pelvic adenopathy by size criteria. Bones: Focal sclerosis is present along the anterior aspect of the T10 vertebral body. No priors. No evidence of superimposed fracture. Other: No significant ventral or inguinal hernia. IMPRESSION: No hydronephrosis or obstructing renal stone. Diverticulosis. Sclerosis within the T10 vertebral body of indeterminant etiology. No priors are available for compar jarod. This may represent a large bone island. However, follow-up evaluation with bone scan or potenti ally MRI may be obtained on a nonemergent basis. Reviewed by: Hannah Briones MD on 03/11/2024 4:20 PM PDT Approved by: Hannah Briones MD on 03/11/2024 4:20 PM PDT Station ID: [id number]
[2024-03-11 16:39] VITALS: BP 147/93
== END 2024-03-11 16:38 | disposition home or self-care (01) ==
LOC: ED 13:32
DX: M54.50 Low back pain, unspecified (principal); I10 Essential (primary) hypertension; Z79.899 Other long term (current) drug therapy
CPT/HCPCS: 99283; 99284

== ENCOUNTER 2024-03-18 06:56 | Day surgery (SDC) | payer OTHER ==
[2024-03-18] MEDS: LACTATED RINGERS 1,000 ML IV ONE ×2 (07:03→08:57)
[2024-03-18] MEDS ORDERED: PROPOFOL 500 MG/50 ML 500 MG/50 ML VIAL ONE (07:53)
[2024-03-18] MEDS ORDERED: MIDAZOLAM 2 MG/2 ML VIAL ONE (07:54)
[2024-03-18] MEDS ORDERED: LIDOCAINE-MPF 2% 5 ML VIAL ONE (07:54)
--- NOTE | 2024-03-18 08:20 | ANESTHESIA ---
Pre-Anesthesia VS, & Labs - Diagnosis N/V weight loss - Procedure EGD Height: 5 ft 8 in Weight (kg): 101.2 kg Body Mass Index: 33.9 BMI Classification: Obese - NPO >8 hours Home Medications and Allergies Home Medications: Ambulatory Orders Zolpidem [Ambien] 5 mg PO HS 03/18/24 Zolpidem [Ambien] 5 mg PO HS 03/18/24 Allergies/Adverse Reactions: Allergies Allergy/AdvReac Type Severity Reaction Status Date / Time No Known Drug Allergies Allergy Verified 03/11/24 14:02 Anes History & Medical History - Anesthetic History Family history of Anesthesia Complications: Denies Family history of Malignant Hyperthermia: Denies - Medical History Cardiovascular: reports: None Pulmonary: reports: Sleep apnea, CPAP use (most nights) Gastrointestinal: reports: GERD Urinary: reports: None Neuro: reports: None Musculoskeletal: reports: Chronic back pain Endocrine/Autoimmune: reports: None Skin: reports: None Smoking Status: Current some day smoker (vapes) Psychosocial: reports: Cannabis History of Cancer?: No Exam General: Alert, Oriented x3, Cooperative, No acute distress Dental: WNL Mouth Openin Fingerbreadth Neck Mobility: Normal Mallampati classification: I Thyromental Distance: 4-6 cm Mental/Cognitive Status: Alert/Oriented X3, Normal for patient Plan Anesthesia Type: General, Total IV Consent for Procedure(s) Verified and Reviewed: Yes Code Status: Attempt Resuscitation ASA classification: 2-Mild systemic disease Is this case an emergency?: No
--- NOTE | 2024-03-18 08:28 | HISTORY & PHYSICAL EXAMINATION ---
Chief Complaint - Chief Complaint Chief Complaint: here for upper endoscopy History of Present Illness - History Obtained From Records Reviewed: yes History obtained from: pt Exam Limitations: none - History of Present Illness HPI Comment/Other: history n/v weight loss. not improving History - Past Medical History Cardiovascular: reports: None Respiratory: reports: Sleep apnea, CPAP use (most nights) Neuro: reports: None Endocrine/Autoimmune: reports: None GI: reports: GERD : reports: None HEENT: reports: None Psych: reports: Post traumatic stress disorder Musculoskeletal: reports: Chronic back pain Derm: reports: None MRSA Hx?: No - Family & Social History Living Situation: With family - POLST Patient has POLST: No Meds/Allgy - Home Medications Home Medications: Ambulatory Orders Medication Instructions Recorded Confirmed Zolpidem [Ambien] 5 mg PO HS 03/18/24 03/18/24 - Allergies Allergies/Adverse Reactions: Allergies Allergy/AdvReac Type Severity Reaction Status Date / Time No Known Drug Allergies Allergy Verified 03/11/24 14:02 Review of Systems - Other Findings Other Findings: 10 pt ros as above otherwise unremarkable Exam - Physical Exam General Appearance: positive: Alert Eyes Bilateral: positive: PERRL, EOMI ENT: positive: No signs of dehydration Neck: positive: No JVD, Trachea midline Respiratory: positive: No respiratory distress Cardiovascular: positive: Regular rate & rhythm Neurologic/Psychiatric: positive: Oriented x3 Conclusion/Plan - Problem List (1) GERD (gastroesophageal reflux disease) Conclusion/Plan: plan egd with biopsies. parq held and consent obtained
[2024-03-18 09:21] VITALS: BP 111/94; O2SAT 99
--- NOTE | 2024-03-18 11:19 | ANESTHESIA POST OP EVALUATION ---
Anesthesia Post Eval - Post Anesthesia Eval Vitals: Last Vital Signs Temp 36.2 C L 03/18/24 08:57 Pulse 65 03/18/24 09:20 Resp 17 03/18/24 09:20 BP 111/94 H 03/18/24 09:20 Pulse Ox 99 03/18/24 09:20 O2 Flow Rate CV Function Including HR & BP: Stable Pain Control: Satisfactory Nausea & Vomiting: Negative Mental Status: Baseline Respiratory Status: Airway Patent Hydration Status: Satisfactory Anesthesia Complications: None
== END 2024-03-18 06:57 | disposition home or self-care (01) ==
LOC: SDS 06:56
PROVIDERS: ATTEND Surgery
PROC: 0DB78ZX Excision of Stomach, Pylorus, Via Natural or Artificial Opening Endoscopic, Diagnostic (ICD-10-PCS; 2024-03-18)
PROC: 0DB68ZX Excision of Stomach, Via Natural or Artificial Opening Endoscopic, Diagnostic (ICD-10-PCS; 2024-03-18)
PROC: 0DB38ZX Excision of Lower Esophagus, Via Natural or Artificial Opening Endoscopic, Diagnostic (ICD-10-PCS; 2024-03-18)
PROC: 0DB98ZX Excision of Duodenum, Via Natural or Artificial Opening Endoscopic, Diagnostic (ICD-10-PCS; principal; 2024-03-18 08:30)
DX: K21.9 Gastro-esophageal reflux disease without esophagitis (principal); K29.50 Unspecified chronic gastritis without bleeding; B96.81 Helicobacter pylori [H. pylori] as the cause of diseases classified elsewhere; R11.2 Nausea with vomiting, unspecified; R63.4 Abnormal weight loss; Z68.33 Body mass index [BMI] 33.0-33.9, adult; G47.30 Sleep apnea, unspecified; F17.290 Nicotine dependence, other tobacco product, uncomplicated; E66.9 Obesity, unspecified
CPT/HCPCS: 43239; J7120